=== PATIENT | female | born 1950 ===

== ENCOUNTER 2023-08-08 09:29 | Inpatient (IN) | payer MEDICARE, BC ==
[~2023-08-08] VITALS: Ht 157.5 cm; Wt 92.6 kg
[2023-08-08] VITALS (21 sets, daily range): BP systolic 49–228; BP diastolic 34–74; PULSE 134–146; TEMP 99.8–100.5; O2SAT 89–99
[~2023-08-08 09:29] MED LIST: ASPIRIN 81M81 MG/TA2 PO; BACTRIM DS 8001 TAB PO; CELEBREX 200MG200 MG PO; FLOMAX 0.40.4 MG/CAP PO; MASON NATURAL2000 IU PO; NORVASC 5MG5 MG/TAB PO; PERCOCET 325 MG1 TA2 PO; PROTONIX 40MG T40 MG PO; ULTRAM 50MG TAB50 MG PO; VITAMIN C500 MG PO; VITAMIN D31000 I1 PO; ZOVIRAX400 MG PO
[2023-08-08] MEDS ORDERED: Ondansetron 4 MG/2 ML VIAL ONE (12:58)
[2023-08-08] MEDS ORDERED: Rocuronium 50 MG/5 ML Multi-Dose VIAL ONE (12:58)
[2023-08-08] MEDS ORDERED: Lidocaine PF 2% (20 MG/ML) 5 ML VIAL ONE (12:58)
[2023-08-08] MEDS ORDERED: fentaNYL 50 MCG/ML 2 ML VIAL ONE (12:58)
[2023-08-08] MEDS ORDERED: Etomidate 20 MG/10 ML VIAL IV ONE (12:58)
[2023-08-08] MEDS ORDERED: LR 1,000 ML IV SCH (13:15)
[2023-08-08] MEDS ORDERED: Midazolam 2 MG/2 ML VIAL ONE (13:36)
[2023-08-08] MEDS ORDERED: *Potassium Replacement Protocol MC SCH (13:45)
[2023-08-08] MEDS ORDERED: NS 1,000 ML IV SCH (13:45)
[2023-08-08] MEDS ORDERED: Meropenem 500 MG in Water For Injection,Sterile 10 ML IV SCH (14:00)
[2023-08-08] MEDS ORDERED: PROBIOTIC (14:29)
[2023-08-08 14:35] LABS: CALCIUM 7.8 mg/dL (8.4-10.2); CREATININE, serum 1.96 mg/dL (0.57-1.11); POTASSIUM 3.7 mmol/L (3.5-4.5)
[2023-08-08] MEDS ORDERED: Lidocaine 2% (20 MG/ML) 20 ML UROJET UR ONE (15:03)
[2023-08-08] MEDS ORDERED: fentaNYL 100 ML IV SCH (15:45)
[2023-08-08] MEDS ORDERED: Naloxone 0.4 MG/ML VIAL IV PRN (16:00)
[2023-08-08 16:36] LABS: ARTERIAL BLD GAS O2 SATURATION 92.2 % (92-100); ARTERIAL BLD GAS TCO2 CT 16.2; ARTERIAL BLOOD GAS BASE EXCESS -10.3 (-2-2); ARTERIAL BLOOD GAS HCO3 15.2 meq/L (22-26); ARTERIAL BLOOD GAS PCO2 32.8 mmHg (35-45); ARTERIAL BLOOD GAS PO2 63.1 mmHg (80-100); ARTERIAL BLOOD GAS pH 7.28 (7.35-7.45)
[2023-08-08] MEDS ORDERED: Vasopressin 20 UNITS in NS 100 ML IV ONE (17:00)
[2023-08-08] MEDS ORDERED: NS 500 ML IV ONE (17:00)
[2023-08-08 17:39] LABS: ARTERIAL BLD GAS TCO2 CT 15.6; ARTERIAL BLOOD GAS BASE EXCESS -11.9 (-2-2); ARTERIAL BLOOD GAS HCO3 14.5 meq/L (22-26); ARTERIAL BLOOD GAS PO2 78.3 mmHg (80-100); ARTERIAL BLOOD GAS pH 7.24 (7.35-7.45)
[2023-08-08] MEDS ORDERED: Sodium Bicarbonate 8.4% 50 MEQ/50 ML SYRINGE IV ONE (17:45)
--- NOTE | 2023-08-08 18:10 | NUR ---
Not appropirate- just back from OR
--- NOTE | 2023-08-08 18:30 | NUR ---
Patient arrived from [place] via EMS at approx 1300. Patient was admitted with levophed running through her peripheral line; patient had another peripheral INT, both in the left arm. Patient was taken back to the OR at approx 1400 for stent placement in the right ureter. Patient came back the unit on the ventilator due to low blood pressures. Patient had ART line placed in the right radial, and a central line placed in the left IJ while back in the OR as well. Upon returning back to the unit, patient's ART line showed pressures to be over 200 systolic; levophed was held. Patient's pressures then normalized, then became hypotensive and levophed was restarted. Patient's blood pressure remained hypotensive even with a high amount of levophed running and patient was then started on vasopressin. Patient remains on levophed and vasopressin for pressure support; patient also has propofol and fentanyl running for sedation. Patient had a Rodriguez catheter placed back in the OR; ET tube was placed and is at 22 at the teeth. Patient's family was updated; patient will remain on ventilator overnight.
--- NOTE | 2023-08-08 19:15 | NUR ---
Received report from day shift nurse, Klarissa. Pt is intubated and lying in bed. Pt's vitals are stable at this time. HR is in the 140's. Pt has a ART line in place with a good wave form. Pt has propofol, fentanyl, levophed, vasopressin, and fluids running at this time. Pt is calm and wakes upon pain. Pt has a coles in place with no kinks in the tubing. Will continue with pt care.
[2023-08-08 19:19] LABS: HEMATOCRIT 40.2 % (37.0-47.0); HEMOGLOBIN 13.3 g/dl (12.5-16.0); MEAN CELL VOLUME 96 fl (80.0-100.0); MEAN CORPUSCULAR HEMOGLOBIN 32 pg (27-31); MEAN CORPUSCULAR HGB CONC 33 g/dl (33.0-37.0); MEAN PLATELET VOLUME 11.3 fl (7.4-10.4); PLATELET COUNT 91 K/mm3 (130-400); RED BLOOD COUNT 4.21 M/mm3 (4.10-5.30)
--- NOTE | 2023-08-08 19:30 | NUR ---
Critical WBC received from KATHY Zapata in pt room and notified of critical lab. No new orders at this time
[2023-08-08] MEDS ORDERED: LR 1,000 ML IV ONE ×2 (20:00)
[2023-08-08] MEDS ORDERED: Heparin 5,000 UNITS/ML 1 ML VIAL SQ SCH (21:00)
[2023-08-09] VITALS: BP 103/65; PULSE 124; TEMP 100.4
[2023-08-09] MEDS ORDERED: NS 500 ML IV ONE ×2 (00:30→01:00)
[2023-08-09] MEDS ORDERED: Metoprolol Tartrate 5 MG/5 ML VIAL IV ONE ×2 (00:30→03:45)
[2023-08-09 00:40] VITALS: BP 48/39
[2023-08-09] MEDS ORDERED: Albumin (Human) 100 ML IV ONE (00:45)
[2023-08-09 00:53] VITALS: BP 56/40
[2023-08-09] MEDS ORDERED: Phenylephrine 20 MG in NS 250 ML IV ONE (01:00)
[2023-08-09 01:14] LABS: ARTERIAL BLD GAS O2 SATURATION 99.7 % (92-100); ARTERIAL BLD GAS TCO2 CT 21.3; ARTERIAL BLOOD GAS BASE EXCESS -4.4 (-2-2); ARTERIAL BLOOD GAS HCO3 20.2 meq/L (22-26); ARTERIAL BLOOD GAS PCO2 35.6 mmHg (35-45); ARTERIAL BLOOD GAS PO2 348.9 mmHg (80-100); ARTERIAL BLOOD GAS pH 7.37 (7.35-7.45)
[2023-08-09] MEDS ORDERED: Sodium Bicarbonate 8.4% 50 MEQ/50 ML SYRINGE IV ONE (01:15)
[2023-08-09 01:34] LABS: HEMATOCRIT 37.6 % (37.0-47.0); HEMOGLOBIN 12.8 g/dl (12.5-16.0); MEAN CELL VOLUME 94 fl (80.0-100.0); MEAN CORPUSCULAR HEMOGLOBIN 32 pg (27-31); MEAN CORPUSCULAR HGB CONC 34 g/dl (33.0-37.0); MEAN PLATELET VOLUME 12.3 fl (7.4-10.4); PLATELET COUNT 85 K/mm3 (130-400); REDCELL DISTRIBUTION WIDTH-CV 15.9 % (11.5-14.5)
[2023-08-09 01:50] LABS: ALBUMIN 2.1 gm/dL (3.4-4.8); CREATININE, serum 1.32 mg/dL (0.57-1.11); MAGNESIUM 1.2 mg/dL (1.6-2.6); PHOSPHOROUS 3.5 mg/dL (2.3-4.7); POTASSIUM 3.7 mmol/L (3.5-4.5)
[2023-08-09] MEDS ORDERED: Vasopressin 20 UNITS in NS 100 ML IV SCH (02:00)
[2023-08-09 02:06] LABS: BAND 12 % (0-10); LYMPHOCYTE 5 % (20.0-51.0); METAMYELOCYTE 2 % (0-0); NEUTROPHILS 80 % (42.0-75.2)
[2023-08-09 02:07] LABS: ANISOCYTOSIS 1+; PLATELET ESTIMATE DECREASED (NORMAL)
[2023-08-09] MEDS ORDERED: Magnesium Sulfate 4% 50 ML IV ONE (02:45)
[2023-08-09] MEDS ORDERED: Heparin 5,000 UNITS/ML 1 ML VIAL IV ONE (03:15)
[2023-08-09] MEDS ORDERED: Heparin/D5W 250 ML IV SCH (03:15)
[2023-08-09] MEDS ORDERED: Heparin 5,000 UNITS/ML 1 ML VIAL IV PRN (03:15)
[2023-08-09 03:39] LABS: PARTIAL THROMBOPLASTIN TIME 35.4 SECONDS (26.0-37.0)
[2023-08-09 04:00] VITALS: BP 92/63; PULSE 146; TEMP 99.3
[2023-08-09] MEDS ORDERED: Phenylephrine 20 MG in NS 250 ML IV SCH (05:00)
--- NOTE | 2023-08-09 07:29 | NUR ---
Sedation vacation was not complete due to pt being unstable.
--- NOTE | 2023-08-09 07:31 | NUR ---
[id number] Gave report to ICU nurse, Mora, from [facility] at [phone].
--- NOTE | 2023-08-09 08:11 | NUR ---
At the beginning of the shift pt would wake upon speech and would not follow commands. Pt on levophed and vasopression for BP and propofol and fentanyl for sedation and NS for fluids. Pt's HR was is the 140's area with BP stable at the time with the ART line reading. Fluid boluses were given per EMAR. When the pt was repositioned the HR was in the 120's, at 0000 about 50 minutes later the pt's HR was in the 150's. Got orders for a fluid bolus and to give metoprolol. Pt BP then started to tank at 0040 the BP was 48/39. Levophed was getting maxed and vaso was also maxed. Hospitalist was notified and rajni was ordered and started. Pt's O2 then started to drop into the 30's RT started to bag the pt. The BP, HR, and O2 finally stablized. Around 0213 the pt's rhythm changed and it was SR with ectopic premature complexes, EKG was done. Around 0300 the pt's HR went into the 150's to 160's with the BP dropping again. EKG was done and asprin and metopolol was given and heparin was started at 0406 and labs were also drawn. Trop was critical at 1.969. Pt then was stablized. Pt was still on levophed, vaso, rajni, prop, and fent when the pt left. Pt would move a little with painful stimuli at the 0400 assessment, pt was not as responsive with the same sedation from the beginning of the shift.
== END 2023-08-09 05:43 | disposition short-term general hospital (02) | DRG 853 ==
LOC: ICU 09:29
PROVIDERS: Physician Assistant; Surgery; Urology; ADMIT Internal Medicine
PROC: 0T768DZ Dilation of Right Ureter with Intraluminal Device, Via Natural or Artificial Opening Endoscopic (ICD-10-PCS; principal; 2023-08-08 14:00)
PROC: 05HN33Z Insertion of Infusion Device into Left Internal Jugular Vein, Percutaneous Approach (ICD-10-PCS; 2023-08-08 14:00)
DX: A41.9 Sepsis, unspecified organism (principal); R65.21 Severe sepsis with septic shock; N39.0 Urinary tract infection, site not specified; N17.9 Acute kidney failure, unspecified; E83.42 Hypomagnesemia; M19.90 Unspecified osteoarthritis, unspecified site
CPT/HCPCS: C1751; C1769; C2617; J1644; J2185; J2250; J2371; J2405; J2598; J2704; J3010; J3475; J7030; J7040; J7050; J7060; J7120; P9047

== ENCOUNTER → 2024-05-04 | Outpatient (CLI) | payer MEDICARE, BC ==
[~2024-05-04] MED LIST changes: +PROBIOTIC
== END ==
LOC: MHCPAIN 14:13
DX: M48.061 Spinal stenosis, lumbar region without neurogenic claudication (principal); M54.16 Radiculopathy, lumbar region
CPT/HCPCS: G0463